=== PATIENT | male | born 1995 | race Caucasian/White ===

== ENCOUNTER 2020-02-15 19:51 | Emergency (ER) | payer OTHER ==
--- NOTE | 2020-02-15 20:50 | RAD ---
CHEST ONE VIEW: indication: History of foreign body in throat. Comparison: None. FINDINGS: No definite radiopaque foreign body is demonstrated. Lungs are clear. No pleural effusion is evident. No pneumothorax is demonstrated. IMPRESSION: No visible radiopaque foreign body. No acute cardiopulmonary abnormality. POS: [facility]
== END 2020-02-15 21:33 | disposition home or self-care (01) ==
LOC: ERS 19:51
DX: T18.128A Food in esophagus causing other injury, initial encounter (principal)
CPT/HCPCS: 71045; 93005